=== PATIENT | female | born 1970 | race Caucasian/White ===

== ENCOUNTER 2021-10-30 09:42 | Outpatient (CLI) | payer OTHER, SELFPAY ==
--- NOTE | ~2021-10-30 | XR_ITS ---
XR knee LT 3V DATE: 10/30/2021 10:08 INDICATION: Left knee pain TECHNIQUE: 3 views COMPARISON: None FINDINGS: There is mild periarticular spurring at all 3 compartments. No fracture or dislocation or j oint effusion. No radiopaque intra-articular loose body or, calcinosis. Joint spaces are relatively p reserved. No periosteal reaction or bone destruction. IMPRESSION: Mild tricompartment osteoarthritis Reviewed, dictated and finalized at location B.
--- NOTE | ~2021-10-30 | XR_ITS ---
XR knee RT 3V DATE: 10/30/2021 10:08 INDICATION: Right knee pain TECHNIQUE: 3 views COMPARISON: None FINDINGS: There is slight spurring at the medial and patellofemoral compartments. Joint spaces are re latively preserved. No fracture or dislocation or joint effusion. No radiopaque intra-articular loose body or chondrocalc inosis. No periosteal reaction or bone destruction. IMPRESSION: Slight osteoarthritis Reviewed, dictated and finalized at location B. IMPRESSION: Slight osteoarthritis
== END 2021-10-30 09:43 ==
PROVIDERS: PCP Family Medicine; Visit Provider Nurse Practitioner
DX: M25.561 Pain in right knee (principal); M25.562 Pain in left knee; M17.0 Bilateral primary osteoarthritis of knee
CPT/HCPCS: 73562

== ENCOUNTER 2021-12-24 11:00 | Outpatient (RCR) | payer OTHER, SELFPAY ==
--- NOTE | 2021-11-26 09:34 | PTOPEVAL1 ---
Assessment and note entered by Alessio Godwin, PT, DPT Evaluation Information Assessment Status Evaluation Diagnosis fede knee pain Onset chronic, 1 month Subjective Information Pt states she always has had L knee pain. She states last month when she was walking on the treadmill, she states she must have been doing too much and it caused her R knee to pop. Since then her R knee pops anytime shes going up/down the stairs and has increased pain when she is up and on her feet all day. She also reports swelling fede . She has received cortisone injections and states these do not help much. Reported Pain Level Pain Score L,R: 0,0: current 5,7: at worst in last week Assessment PT Clinical Summary Barbra presents to therapy today for her initial evaluation with a diagnosis of fede knee pain. Today she demonstrates quadriceps weakness with poor patellar tracking and increased patellar mobility . She demonstrates increased medial and lateral instability during functional transfers and with single leg balance and strength challenged. She demonstrates no notable deviations during gait or stairs. She has equal and normal knee ROM that is pain free. Skilled physical therapy services are indicated to improve knee strength and stability, limit pain, limit impairment, and promote unlimited functional mobility. Plan of Care Interventions Electrical Stimulation,Gait Training,Hot Pack/Cold Pack,Manual Therapy,Neuro Re-education,Patient/ Caregiver Educati,Therapeutic Activities, Therapeutic Exercise PT Services Indicated Yes Treatment Frequency and 1x/wk for 4 wks Duration These treatments will address the objective and functional deficits as defined above. The patient will be advanced safely and appropriately in order for the patient to progress towards his/her prior level of function. Additional exercises will be introduced and as well as a comprehensive home exercise program upon discharge, if needed, ?to ensure carryover of functional gains achieved in the clinic. This treatment plan has been reviewed and agreement upon by the patient.
--- NOTE | 2021-12-17 11:06 | PCPTNOTE ---
Patient canceled due to child being sick.
--- NOTE | 2021-12-24 11:39 | PTOPDC ---
Assessment and note entered by Alessio Godwin, PT, DPT Evaluation Information Assessment Status Discharge Diagnosis fede knee pain Onset chronic, 1 month Subjective Information Pt states she has been doing her exercises at home diligently. She states the exercises have been helping. She states she was helping clean her grandmother house yesterday and she was able to get up and off the floor without an increase in pain. Pt reports she has improved to 100% of where she wants to be. Reported Pain Level Pain Score 2,0: Self Report Assessment PT Clinical Summary Barbra presents to therapy today for her progress report following 3 visits of therapy and participation in a HEP. Today she demonstrates good functional strength and balance. She demonstrates good knee stability and strength during functional activities. She has met all of her therapy goals and will be discharged from skilled therapy at this time. She was instructed to continue her HEP upon discharge and to follow up with her referring provider in new symptoms occur. Plan of Care Interventions Electrical Stimulation,Gait Training,Hot Pack/Cold Pack,Manual Therapy,Neuro Re-education,Patient/ Caregiver Educati,Therapeutic Activities, Therapeutic Exercise PT Services Indicated Yes Treatment Frequency and to be discharged Duration
== END 2021-12-24 15:46 | disposition home or self-care (01) ==
LOC: ANHGOSHPT 11:00
PROVIDERS: PCP Family Medicine; Visit Provider Nurse Practitioner
DX: M25.562 Pain in left knee (principal); M25.561 Pain in right knee
CPT/HCPCS: 97110; 97112; 97161; 97530